=== PATIENT | female | born 1950 | race African-American/Black ===

== ENCOUNTER 2018-06-14 05:34 | Observation (INO) | payer OTHER ==
[2018-06-13 14:35] LABS: BASOPHILS # (AUTO) 0.1 (0.0-0.1); BASOPHILS % 0.8 % (0.0-1.0); EOSINOPHILS # (AUTO) 0.2 (0.0-0.4); EOSINOPHILS % 2.9 % (0.0-6.0); HEMATOCRIT 36.4 % (34.2-44.1); HEMOGLOBIN 11.4 g/dL (12.0-16.0); LYMPHOCYTES # (AUTO) 2.8 (1.0-3.2); LYMPHOCYTES % 42.8 % (18.0-39.1); MEAN CORPUSCULAR HGB CONC 31.3 g/dL (31-35); MEAN CORPUSCULAR VOLUME 86.1 fL (81-99); MONOCYTES # (AUTO) 0.5 (0.2-0.8); NEUTROPHILS # (AUTO) 3.1 (2.1-6.9); NEUTROPHILS % 46.2 % (38.7-80.0); PLATELET COUNT 307 x10e3/uL (140-360); RED BLOOD COUNT 4.23 x10e6/uL (3.6-5.1); RED CELL DISTRIBUTION WIDTH 15.3 % (11.7-14.4)
[2018-06-13 14:53] LABS: ANION GAP 15.2 mmol/L (8-16); BLOOD UREA NITROGEN 9 mg/dL (7-26); BUN/CREATININE RATIO 12 (6-25); CALCIUM 9.9 mg/dL (8.4-10.2); CARBON DIOXIDE 24 mmol/L (22-29); CHLORIDE 107 mmol/L (98-107); CREATININE, SERUM 0.74 mg/dL (0.57-1.11); EST GLOMERULAR FILTRATION RATE > 60 ML/MIN (60-); GLUCOSE 94 mg/dL (74-118); POTASSIUM 4.2 mmol/L (3.5-5.1); SODIUM 142 mmol/L (136-145)
--- NOTE | 2018-06-13 15:13 | Diagnostic Imaging Report ---
EXAMINATION: PA and lateral views of the chest. COMPARISON: None CLINICAL HISTORY: Pre-admission, knee surgery DISCUSSION: Lines/tubes: None. Lungs: The lungs are well inflated and clear. No pneumonia or pulmonary edema. Pleura: No pleural effusion or pneumothorax. Heart and mediastinum: The cardiomediastinal silhouette is normal. Bones and soft tissues: No acute bony abnormalities. IMPRESSION: No acute cardiopulmonary abnormalities. Signed by: Dr. Miles Aldridge M.D. on 06/13/2018 3:09 PM
[~2018-06-14] VITALS: Ht 154.9 cm; Wt 100.7 kg
[~2018-06-14 05:34] MED LIST: DICLOFENAC TOP; HYDROCHLOROTHIA25 MG PO; NORCO 5-325 TA1 EACH PO; ULTRAM 50MG50 MG PO
--- OUTSIDE RECORDS SUMMARY | 2018-06-14 05:37 | XMS REPORT | Clinical Summary ---
Author Author [facility] Address Unknown Phone Unavailable Care Team Providers Care Tire Inspector Name Role Phone Asked, No Pcp PCP Unavailable Allergies No Known Allergies Medications No known medications Active Problems No known active problems Social History Date Tobacco Use Types Packs/Day Years Used Never Smoker Sex Assigned at Date Recorded Not on file Industry Job Start Date Occupation Not on file Not on file Not on file Travel End Travel History Travel Start No recent travel history available. Last Filed Vital Signs Not on file Plan of Treatment Health Maintenance Due Date Last Done Comments BREAST CANCER SCREENING 1998 COLON CANCER SCREENING 1998 SHINGRIX VACCINE (1 of 2) 1998 ZOSTER VACCINE 2008 PNEUMOCOCCAL 2013 POLYSACCHARIDE VACCINE AGE 65 AND OVER PNEUMOCOCCAL-13 2013 INFLUENZA VACCINE 02/02/2018 Results Not on fileafter 06/13/2017 Insurance Payer Benefit Subscriber ID Type Phone Address Plan / Group [employer] TEX[employer] xxxxxxxxx [facility] Advance Directives Patient has advance care planning documents on file. For more information, ji ríos contact: Nikko Mancuso [address] [place] [address]
--- OUTSIDE RECORDS SUMMARY | 2018-06-14 05:37 | XMS REPORT ---
[facility] Address Unknown Phone Unavailable Care Team Providers Care Leasing Associate Name Role Phone AGUSTIN CHARLES Unavailable Unavailable Problems This patient has no known problems. Allergies, Adverse Reactions, Alerts This patient has no known allergies or adverse reactions. Medications This patient has no known medications. Results Test Description Test Time Test Comments Text Results Atomic Results Result Comments CHEST 2 VIEWS 2018-06-13 15:09:00 [place] [address] Patient Name: BEN EDMOND MR #: [id number] : 1950 Age/Sex: 68/F Req #: [id number] Adm Physician: Ordered by: AGUSTIN CHARLES MD Report #: [id number] Location: OR Room/Bed: Procedure: [id number] DX/CHEST 2 VIEWS Exam Date: 06/13/18 Exam Time: 1434 REPORT STATUS: Signed EXAMINATION: PA and lateral views of the chest. KARINA RISON: None CLINICAL HISTORY: Pre-admission, knee surgery DISCUSSION: Lines/tubes: None. Lungs: The lungs are well inflated and clear. No pneumonia or pulmonary edema. Pleura: No pleural effusion or pneumothorax. Heart and mediastinum: The cardiomediastinal silhouette is normal. Bones and soft tissues: No acute bony abnormalities. IMPRESSION: No acute cardiopulmonary abnormalities. Signed by: Dr. José Cheng M.D. on 06/13/2018 3:09 PM Dictated By: JOSÉ CHENG MD 08 Transcribed By: ELENA on 06/13/181508 COPY TO: AGUSTIN CHARLES MD
[2018-06-14] MEDS ORDERED: BACITRACIN 50,000 UNIT VIAL ONE (06:15)
[2018-06-14] MEDS ORDERED: CELECOXIB 200 MG CAP ONE (06:30)
[2018-06-14] MEDS ORDERED: DEXAMETHASONE SOD PHOS 10 MG/1 ML VIAL ONE (06:30)
[2018-06-14] MEDS ORDERED: GABAPENTIN 300 MG CAP ONE (06:31)
[2018-06-14] MEDS ORDERED: CEFAZOLIN SOD 2 GM/D5W 50ML 50 ML IV ONE (06:31)
[2018-06-14] MEDS ORDERED: ROPIVACAINE 246.25 MG, EPINEPHRINE HCL 1:1000 0.5 MG, CLONIDINE HCL 0.08 MG, KETOROLAC ... INJ ONE ×5 (07:30)
[2018-06-14] MEDS ORDERED: KETOROLAC TROMETHAMINE 30 MG/ML VIAL IV PRN (09:30)
[2018-06-14] MEDS ORDERED: ZOLPIDEM TARTRATE 5 MG TAB PO PRN (09:30)
[2018-06-14] MEDS ORDERED: HYDROCODONE/APAP 7.5MG-325MG 1 EA TAB PO PRN (09:30)
[2018-06-14] MEDS ORDERED: PROMETHAZINE HCL (IM) 25 MG/ML VIAL INJ PRN (09:30)
[2018-06-14] MEDS ORDERED: DOCUSATE SODIUM 100 MG CAP PO PRN (09:30)
[2018-06-14] MEDS ORDERED: ONDANSETRON HCL INJ 2 MG/ML VIAL IV PRN (09:30)
[2018-06-14] MEDS ORDERED: HYDROCODONE/APAP 5MG-325MG TAB PO PRN (09:30)
[2018-06-14] MEDS ORDERED: ACETAMINOPHEN 650 MG SUPP PR PRN (09:30)
[2018-06-14] MEDS ORDERED: DIPHENHYDRAMINE HCL INJ 50 MG/ML VIAL IM/IV PRN (09:30)
--- NOTE | 2018-06-14 10:05 | Operative Report ---
DATE OF PROCEDURE: June 14, 2018 ASSOCIATE PROFESSOR OF PATHOLOGY: Ciro Brown PA-C The patient was brought to the operating room for induction of anesthesia. Throughout this case, my PA's assistance was necessary for retraction of soft tissue and positioning of the extremity. This allows for efficient and technically successful execution of the operation and is considered medically necessary. PREOPERATIVE DIAGNOSES 1. Osteoarthritis, left knee. 2. Morbid obesity. POSTOPERATIVE DIAGNOSES 1. Osteoarthritis, left knee. 2. Morbid obesity. PROCEDURE: Complex left total knee replacement with subtotal synovectomy. INDICATIONS: The patient is a 68-year-old lady who has clinic signs and symptoms consistent with advanced osteoarthritis of her left knee. She has failed conservative management and would like to proceed with a left total knee replacement. The risks and benefits of the procedure have been discussed. The added potential for risk due to her body mass index of 43 has been explained. She states she understands and wishes to proceed. DESCRIPTION OF PROCEDURE: The patient was brought to the operating room and placed under general anesthetic. She received prophylactic antibiotics, a regional block, and tranexamic acid in the holding area. Her left lower extremity was prepped and draped in a sterile manner. Added time and personnel was necessary due to the patient's body mass index of 43. A preoperative time out was performed. The extremity was exsanguinated and a proximal tourniquet was inflated to 350 mmHg. A more extensile incision than usual was necessary. A medial parapatellar arthrotomy was performed. Blood-tinged synovial fluid was encountered. Massive amounts of synovitis were encountered. I initially started by performing a subtotal synovectomy. This allowed better exposure of the altered surgical field. Soft tissue releases were performed to bring the knee up into flexion with the patella everted. Again, added challenges were encountered to manipulate the knee. The cruciate ligaments were sacrificed. A Eng and Nephew posterior stabilized Legion knee system was used throughout the case. The proximal tibia was carefully exposed. Marginal osteophytes were removed. A tibial cutting guide was used to resect the proximal tibia. The tibial baseplate was a size #4. The central fin punch was impacted and attention was directed towards the distal femur. An intramedullary cutting guide was used to resect the distal femur in 6 degrees of valgus and 30 degrees of external rotation. Rotation was also referenced off of the posterior condyle, the epicondylar axis and [place] line. The femoral component was a size #5. The anterior and posterior cuts were made. The notch cut was made. Trial reductions were performed. A 9 mm posterior stabilized tibial insert provided appropriate soft tissue balancing. The patella was resurfaced with a 29 mm x 7.5 mm patellar button. The thickness was checked before and after and was right around 21 mm. Patellar tracking was noted to be concentric. The trial implants were then removed. A 100 mL premixed pericapsular injection was placed into the surrounding soft tissue. The knee was thoroughly irrigated with a shower-tip pulsatile lavage. A single mix of high-viscosity Simplex cement was used to cement the components into place. Care was taken to remove extravasated cement. The wound was further irrigated while the cement cured. The arthrotomy was then closed with interrupted #1 Ethibond stitches. The knee was put through flexion and extension to ensure a secure closure. The skin was carefully closed with subcuticular Vicryl and christiano. A Prevena wound VAC was applied due to the abundant subcutaneous adipose tissue. The patient was extubated and transported to the recovery room in stable condition. Blood loss was minimal. All needle and sponge counts were correct. Job#: [id number] MANUEL
--- NOTE | 2018-06-14 10:20 | Diagnostic Imaging Report ---
PROCEDURE: X-RAY LEFT KNEE, ONE OR TWO VIEWS COMPARISON: None. INDICATIONS:POST RIGHT KNEE SURGERY FINDINGS: See conclusion. CONCLUSION: Status post total right knee replacement with surrounding soft tissue swelling, air and christiano consistent with recent surgery. No acute fractures. Lucio Aguayo M.D. Dictated by: Lucio Aguayo M.D. on 06/14/2018 at 10:30 Electronically approved by: Lucio Aguayo M.D. on 06/14/2018 at 10:30
--- OUTSIDE RECORDS SUMMARY | 2018-06-14 10:51 | XMS REPORT | Clinical Summary ---
Author Author [facility] Address Unknown Phone Unavailable Care Team Providers Care Development Disability Specialist Name Role Phone Asked, No Pcp PCP [...] Plan / Group [employer] TEX[employer] xxxxxxxxx [facility] Advance Directives Patient has advance care planning documents on file. For more information, ji ríos contact: Nikko Mancuso [address] [place] [address]
[2018-06-14 12:25] VITALS: BP 144/85
[2018-06-14 12:47] VITALS: BP 144/85
[2018-06-14] MEDS: ACETAMINOPHEN 1000 MG/100 ML IV SCH ×2 (13:00→17:31)
[2018-06-14 13:49] VITALS: BP 144/85
[2018-06-14] MEDS: CEFAZOLIN SOD 1 GM/D5W 50ML 50 ML IV SCH ×2 (14:07→21:33)
[2018-06-14] MEDS ORDERED: DEXAMETHASONE SOD PHOS INJ 4 MG/ML VIAL ONE (14:59)
[2018-06-14] MEDS ORDERED: KETOROLAC TROMETHAMINE 30 MG/ML VIAL ONE (14:59)
[2018-06-14] MEDS ORDERED: ACETAMINOPHEN 1000 MG/100 ML IV ONE (14:59)
[2018-06-14] MEDS ORDERED: LABETALOL HCL 5 MG/ML 20ML VIAL ONE (14:59)
[2018-06-14] MEDS ORDERED: ONDANSETRON HCL INJ 2 MG/ML VIAL ONE (14:59)
[2018-06-14] MEDS ORDERED: PROPOFOL IV EMULSION 10 MG/ML 20 ML VIAL ONE (14:59)
[2018-06-14] MEDS ORDERED: DESFLURANE 240 ML BTL INH ONE (14:59)
[2018-06-14] MEDS ORDERED: ROPIVACAINE 0.5% 5 MG/ML 30 ML SDV ONE (15:06)
[2018-06-14] MEDS ORDERED: LIDOCAINE HCL 2% LOCAL 20 ML VIAL ONE (15:06)
[2018-06-14] MEDS ORDERED: FENTANYL CITRATE/PF 100MCG/2 ML INJ ONE (15:29)
[2018-06-14] MEDS ORDERED: MIDAZOLAM HCL 2 MG/2 ML VIAL ONE (15:29)
[2018-06-14 16:26] VITALS: BP 134/63
[2018-06-14] MEDS ORDERED: ASPIRIN 325 MG TAB PO SCH (17:00)
[2018-06-14] MEDS: CELECOXIB 100 MG CAP PO SCH (17:31)
[2018-06-14 19:00] VITALS: BP 134/63
[2018-06-14] MEDS: SODIUM CHLORIDE 0.9% 1000ML 1,000 ML IV SCH ×2 (19:16→21:33)
[2018-06-14 20:00] VITALS: BP_SYST 124; BP_SYST 126; BP_DIAS 60; BP_DIAS 70
[2018-06-15] VITALS: BP 126/60
[2018-06-15] MEDS: ACETAMINOPHEN 1000 MG/100 ML IV SCH ×2 (00:39→06:00)
[2018-06-15 04:00] VITALS: BP 139/63
[2018-06-15] MEDS: SODIUM CHLORIDE 0.9% 1000ML 1,000 ML IV SCH (05:16)
[2018-06-15] MEDS: CEFAZOLIN SOD 1 GM/D5W 50ML 50 ML IV SCH (06:19)
[2018-06-15 07:54] LABS: HEMATOCRIT 26.8 % (34.2-44.1); HEMOGLOBIN 8.6 g/dL (12.0-16.0)
[2018-06-15] MEDS ORDERED: ASPIRIN325 MG PO (08:42)
[2018-06-15] MEDS ORDERED: HYDROCHLOROTHIAZIDE 25 MG TAB PO SCH (09:00)
[2018-06-15] MEDS ORDERED: TRAMADOL HCL 50 MG TAB PO SCH (09:00)
[2018-06-15] MEDS ORDERED: ASPIRIN 325 MG TAB PO SCH (09:00)
[2018-06-15 09:04] VITALS: BP 114/57
[2018-06-15] MEDS ORDERED: TRAMADOL HCL 50 MG TAB PO PRN (09:15)
[2018-06-15] MEDS ORDERED: ACETAMINOPHEN 1000 MG/100 ML IV PRN (09:30)
[2018-06-15 11:00] VITALS: BP 114/57
[2018-06-15] MEDS: CELECOXIB 100 MG CAP PO SCH (11:00)
[2018-06-15] MEDS ORDERED: COLACE100 MG PO (11:33)
[2018-06-15] MEDS ORDERED: HEMOCYTE PLUS1 EACH PO (11:33)
[2018-06-15] MEDS ORDERED: ROPIVACAINE 0.5% 5 MG/ML 30 ML SDV INJ ONE (13:17)
[2018-06-15] MEDS ORDERED: LIDOCAINE 2%/ EPINEPHRINE 20ML MDV IV ONE (13:17)
== END 2018-06-15 13:18 | disposition home health service (06) ==
LOC: OR 05:34 → PACU V 09:18 → MED/SURG 12:13
PROVIDERS: ADMIT Specialist; ATTEND Specialist
DX: M17.12 Unilateral primary osteoarthritis, left knee (principal); E66.01 Morbid (severe) obesity due to excess calories; Z68.41 Body mass index [BMI] 40.0-44.9, adult; I10 Essential (primary) hypertension; D64.9 Anemia, unspecified
CPT/HCPCS: 27447; 36415 ×2; 71046; 73560; 80048; 85014; 85018; 85025; 86850; 86900; 86920; 97116 ×2; 97139; 97162; 97530; C1713; G0378 ×2; G8978; G8979; J0131 ×2; J0171; J0690 ×2; J1100 ×2; J1885 ×2; J2001 ×2; J2250; J2405; J2704; J2795 ×2; J3490; J7030

== ENCOUNTER 2020-01-29 05:10 | Observation (INO) | payer MEDICARE, OTHER ==
[2020-01-24 15:06] LABS: BASOPHILS % 0.7 % (0.0-1.0); EOSINOPHILS # (AUTO) 0.1 (0.0-0.4); EOSINOPHILS % 1.8 % (0.0-6.0); HEMATOCRIT 40.7 % (34.2-44.1); HEMOGLOBIN 12.4 g/dL (12.0-16.0); LYMPHOCYTES # (AUTO) 2.3 (1.0-3.2); MEAN CORPUSCULAR HEMOGLOBIN 26.5 pg (28-32); MEAN CORPUSCULAR HGB CONC 30.5 g/dL (31-35); MONOCYTES # (AUTO) 0.4 (0.2-0.8); MONOCYTES % 7.4 % (4.4-11.3); NEUTROPHILS # (AUTO) 2.8 (2.1-6.9); NEUTROPHILS % 49.7 % (38.7-80.0); PLATELET COUNT 299 x10e3/uL (140-360); RED BLOOD COUNT 4.68 x10e6/uL (3.6-5.1); RED CELL DISTRIBUTION WIDTH 15.2 % (11.7-14.4)
--- NOTE | 2020-01-24 15:07 | Diagnostic Imaging Report ---
EXAMINATION: CHEST 2 VIEWS INDICATION: Pre-operative COMPARISON: Chest radiograph of 04/23/2018 FINDINGS: LINES/TUBES:None LUNGS:The lungs are well-inflated. No focal consolidation or pulmonary edema. PLEURA:No pleural effusion or pneumothorax. MEDIASTINUM:The cardiomediastinal silhouette appears normal in size and shape. Atherosclerotic calcifications of the thoracic aorta. BONES/SOFT TISSUES:No acute osseous injury. ABDOMEN:No free air under the diaphragm. IMPRESSION: No focal pneumonia or pulmonary edema. Signed by: Roby Kelley MD on 01/24/2020 3:04 PM
[2020-01-24 15:20] LABS: ANION GAP 14.5 mmol/L (8-16); BLOOD UREA NITROGEN 9 mg/dL (7-26); BUN/CREATININE RATIO 11 (6-25); CALCIUM 9.7 mg/dL (8.4-10.2); CARBON DIOXIDE 26 mmol/L (22-29); CHLORIDE 110 mmol/L (98-107); EST GLOMERULAR FILTRATION RATE > 60 ML/MIN (60-); GLUCOSE 102 mg/dL (74-118); POTASSIUM 4.5 mmol/L (3.5-5.1); SODIUM 146 mmol/L (136-145)
[~2020-01-29] VITALS: Ht 154.9 cm; Wt 113.4 kg
[~2020-01-29 05:10] MED LIST changes: +ASPIRIN325 MG PO; +ATORVASTATIN CA10 MG PO; +COLACE100 MG PO; +HEMOCYTE PLUS1 EACH PO; +VITAMIN D250 MCG PO
[2020-01-29] MEDS ORDERED: GABAPENTIN 300 MG CAP ONE (05:34)
[2020-01-29] MEDS ORDERED: CEFAZOLIN SOD 1 GM/NS 50ML 100 ML IV ONE (05:34)
[2020-01-29] MEDS ORDERED: DEXAMETHASONE SOD PHOS 10 MG/1 ML VIAL ONE (05:34)
[2020-01-29] MEDS ORDERED: CELECOXIB 200 MG CAP ONE (05:34)
[2020-01-29] MEDS ORDERED: VANCOMYCIN HCL 1,000 MG ONE (06:17)
[2020-01-29] MEDS ORDERED: SODIUM CHLORIDE 0.9% 500ML 500 ML ONE (06:17)
[2020-01-29] MEDS ORDERED: TRANEXAMIC ACID 1,000 MG/10 ML ML ONE (06:18)
[2020-01-29] MEDS ORDERED: BACITRACIN 50,000 UNIT VIAL ONE (06:18)
[2020-01-29] MEDS ORDERED: ROPIVACAINE 246.25 MG, EPINEPHRINE HCL 1:1000 1ML 0.5 MG, CLONIDINE HCL 0.08 MG, KETORO... INJ ONE ×5 (08:00)
[2020-01-29] MEDS ORDERED: DOCUSATE SODIUM 100 MG CAP PO PRN (08:45)
[2020-01-29] MEDS ORDERED: HYDROCODONE/APAP 5MG-325MG TAB PO PRN (08:45)
[2020-01-29] MEDS ORDERED: DIPHENHYDRAMINE HCL INJ 50 MG/ML VIAL IV PRN (08:45)
[2020-01-29] MEDS ORDERED: ACETAMINOPHEN 650 MG SUPP PR PRN (08:45)
[2020-01-29] MEDS ORDERED: ONDANSETRON HCL INJ 2MG/ML 2ML 2 MG/ML VIAL IV PRN (08:45)
[2020-01-29] MEDS ORDERED: FENTANYL CITRATE/PF 100MCG/2 ML INJ ONE (08:59)
[2020-01-29] MEDS ORDERED: CELECOXIB 100 MG CAP PO SCH (09:00)
[2020-01-29] MEDS ORDERED: METOCLOPRAMIDE HCL 10 MG/2ML VIAL ONE (09:56)
[2020-01-29] MEDS ORDERED: PROMETHAZINE HCL (IM) 25 MG/ML VIAL ONE (10:04)
[2020-01-29] MEDS: KETOROLAC TROMETHAMINE 30 MG/ML VIAL IV PRN ×3 (10:10→16:32)
[2020-01-29] MEDS ORDERED: NALOXONE HCL INJ 0.4 MG/ML AMP ONE (10:14)
--- NOTE | 2020-01-29 10:18 | Diagnostic Imaging Report ---
EXAMINATION: KNEE RIGHT 1-2 VIEWS INDICATION: Postoperative COMPARISON: None FINDINGS: AP and lateral images of the right knee demonstrate immediate postoperative findings of right total knee replacement. Alignment is anatomic. No unexpected fracture. Postoperative soft tissue emphysema and small joint effusion. Surgical skin christiano in place. IMPRESSION: Anatomic alignment status post right total knee replacement. Signed by: Roby Kelley MD on 01/29/2020 10:15 AM
[2020-01-29 10:30] VITALS: BP_SYST 122; BP_SYST 127; BP_DIAS 60; BP_DIAS 63
--- NOTE | 2020-01-29 10:30 | NUR ---
Pt received at this time from PACU. Pt is aox4 and able to verbalize needs. Pt had right total knee with Dr. Martin. dressing to right knee is dry and intact. Breaths are even and unlabored on room air.
[2020-01-29 10:55] LABS: BASOPHILS % 0.1 % (0.0-1.0); EOSINOPHILS % 0.1 % (0.0-6.0); HEMATOCRIT 36.4 % (34.2-44.1); HEMOGLOBIN 11.4 g/dL (12.0-16.0); LYMPHOCYTES # (AUTO) 1.1 (1.0-3.2); LYMPHOCYTES % 14.3 % (18.0-39.1); MEAN CORPUSCULAR HEMOGLOBIN 26.9 pg (28-32); MEAN CORPUSCULAR HGB CONC 31.3 g/dL (31-35); MEAN CORPUSCULAR VOLUME 85.8 fL (81-99); MONOCYTES # (AUTO) 0.1 (0.2-0.8); MONOCYTES % 0.8 % (4.4-11.3); NEUTROPHILS # (AUTO) 6.7 (2.1-6.9); NEUTROPHILS % 83.9 % (38.7-80.0); PLATELET COUNT 242 x10e3/uL (140-360); RED BLOOD COUNT 4.24 x10e6/uL (3.6-5.1); RED CELL DISTRIBUTION WIDTH 15.1 % (11.7-14.4)
--- NOTE | 2020-01-29 10:57 | Operative Report ---
DATE OF PROCEDURE: 01/29/2020 SURGEON: Kiran Martin MD LEGAL BILLING SPECIALIST: Ciro Brown, certified PA. PREOPERATIVE DIAGNOSIS: Osteoarthritis, right knee. POSTOPERATIVE DIAGNOSIS: Osteoarthritis, right knee. PROCEDURE: Right total knee arthroplasty, * added complexity secondary to BMI of 42. INDICATIONS: The patient is a 69-year-old lady, who has end-stage arthritis of her right knee. She has failed conservative management and would like to proceed with a right total knee replacement. The risks and benefits of the procedure have been discussed. The added challenges and risks for perioperative complications due to her body mass index have been discussed. She accepts this. She is status post a left total knee replacement and is happy with the outcome. PROCEDURE IN DETAIL: The patient was brought to the operating room and placed under general anesthetic. She received prophylactic antibiotics, a regional block and tranexamic acid in the holding area. Her right lower extremity was prepped and draped in a sterile manner. Added time and attention to detail was used due to her body mass index. Not only does she have a body mass index of 42, the majority of her weight is distributed to her lower extremities. A preoperative time-out was performed. The extremity was exsanguinated and a proximal tourniquet was inflated to 400 mmHg. We did this because of the amount of adipose tissue in her right lower extremity and because of the challenges we encountered we did her left knee with breakthrough bleeding. An anterior incision with a medial parapatellar arthrotomy was performed. I made specific efforts to limit soft tissue dissection and diminish the potential for creating space. Soft tissue releases were performed to bring the knee up into flexion with the patella everted. A large amount of inflammatory synovium was encountered. Throughout the case, a subtotal synovectomy would be performed. Meniscal remnants and the cruciate ligaments were excised. Marginal osteophytes were removed. The proximal tibia was carefully exposed. Some challenges were encountered due to the abundant adipose tissue and altered surgical field. An extramedullary cutting guide was used to resect the proximal tibia. The tibial base plate was a size 4. The central fin punch was carefully impacted and attention was directed towards the distal femur. An intramedullary cutting guide was used to resect the distal femur in 6 degrees of valgus and rotation referencing off a combination of landmarks including [place] line, the epicondylar axis, and the posterior condyles. The femoral component was a size 5. The anterior, posterior, and notch cuts were made. A trial reduction was then performed. A 9 mm posterior stabilized tibial insert provided appropriate soft tissue balancing in flexion and extension. The patella was then resurfaced with a 29 mm x 7.5 mm patellar button. The thickness was checked before and after resurfacing, and was right around 21 mm. Patellar tracking was noted to be concentric. The trial implants were removed. The knee was thoroughly irrigated with a shower tip pulsatile lavage. Bone cuts had been irrigated with a diluted mixture of polymyxin and vancomycin spray. Her bone was soft and there did not appear to be any thermal necrosis. A 100 mL premixed pericapsular KOBE injection was placed into the surrounding soft tissue. The knee was further irrigated. The components were cemented into place using a single mix of high viscosity Biomet cement preloaded with gentamicin. Care was taken to remove all extravasated cement. The wound was further irrigated while the cement cured. A 500 mg of vancomycin powder was then sprinkled into the wound. The arthrotomy was then closed with interrupted #1 Ethibond. The knee was put through flexion and extension to ensure a secure closure. The skin was closed with subcuticular Vicryl and christiano. A sterile Aquacel bandage was applied. The patient was extubated and transported to the recovery room in stable condition. Blood loss was minimal. Needle and sponge counts were correct. Kiran Martin MD DR/EMANUEL /[id number]
[2020-01-29 11:11] LABS: ANION GAP 11.8 mmol/L (8-16); BLOOD UREA NITROGEN 11 mg/dL (7-26); BUN/CREATININE RATIO 14 (6-25); CALCIUM 8.8 mg/dL (8.4-10.2); CARBON DIOXIDE 24 mmol/L (22-29); CHLORIDE 108 mmol/L (98-107); CREATININE, SERUM 0.79 mg/dL (0.57-1.11); EST GLOMERULAR FILTRATION RATE > 60 ML/MIN (60-); GLUCOSE 158 mg/dL (74-118); POTASSIUM 3.8 mmol/L (3.5-5.1); SODIUM 140 mmol/L (136-145)
[2020-01-29] MEDS: ASPIRIN 325 MG TAB PO SCH ×2 (11:22→16:32)
[2020-01-29] MEDS: SODIUM CHLORIDE 0.9% 1000ML 1,000 ML IV SCH ×2 (11:22→18:45)
[2020-01-29] MEDS: HYDROCODONE/APAP 7.5MG-325MG 1 EA TAB PO PRN ×2 (11:23→21:50)
[2020-01-29 11:45] VITALS: BP 100/58
[2020-01-29] MEDS ORDERED: ACETAMINOPHEN 1000 MG/100 ML IV PRN (12:00)
[2020-01-29] MEDS: CEFAZOLIN SOD 1 GM/NS 50ML 50 ML IV SCH ×2 (16:32→22:00)
[2020-01-29] MEDS: CELECOXIB 200 MG CAP PO SCH (16:32)
[2020-01-29 16:55] VITALS: BP 126/66
[2020-01-29 20:00] VITALS: BP 138/65
[2020-01-29] MEDS ORDERED: ZOLPIDEM TARTRATE 5 MG TAB PO PRN (21:00)
[2020-01-30] VITALS: BP 129/56
[2020-01-30 04:00] VITALS: BP 142/68
[2020-01-30 05:08] LABS: HEMATOCRIT 35.9 % (34.2-44.1); HEMOGLOBIN 10.9 g/dL (12.0-16.0)
[2020-01-30] MEDS: SODIUM CHLORIDE 0.9% 1000ML 1,000 ML IV SCH (05:40)
[2020-01-30] MEDS: CEFAZOLIN SOD 1 GM/NS 50ML 50 ML IV SCH (05:45)
[2020-01-30] MEDS: HYDROCODONE/APAP 7.5MG-325MG 1 EA TAB PO PRN (06:00)
--- NOTE | 2020-01-30 07:00 | NUR ---
RECEIVED PT ON BEDSIDE ROUNDS. CMP IN PLACE; PT TOLERATING WELL.
--- NOTE | 2020-01-30 08:14 | NUR ---
DR DIAZ OFFICE PREARRANGED FOLLOWING DISCHARGE PLAN OF:HOME [address] [place], [address] [facility] CONFIRMED WITH LUCIANA [phone] DME 3 IN ONE COMMODE, CPM AND ROLLING WALKER WITH WHEELS. PROVIDED BY [employer] [phone] DEVAUGHN TRIMBLE SIGNED AND ON CHART COPY LEFT WITH PATIENT GAVE CARD FOR QUESTIONS AND OR CONCERNS.
[2020-01-30 08:29] VITALS: BP 149/65
[2020-01-30] MEDS: CELECOXIB 200 MG CAP PO SCH (09:00)
[2020-01-30] MEDS ORDERED: ERGOCALCIFEROL 50000 UNIT PO SCH (09:00)
[2020-01-30] MEDS ORDERED: ATORVASTATIN 10 MG TAB PO SCH (09:00)
[2020-01-30] MEDS: ASPIRIN 325 MG TAB PO SCH (09:00)
[2020-01-30 10:45] VITALS: BP 149/65
--- NOTE | 2020-01-30 11:58 | Consultation ---
DATE OF CONSULTATION: PRIMARY CARE PHYSICIAN: Dr. Dirk Waldrop. REASON FOR CONSULTATION: Medical consultation for hypertension and medical management. HISTORY OF PRESENT ILLNESS: The patient is a pleasant 69 years female, status post right knee total replacement. The patient is otherwise stable. Tolerates physical therapy. The patient had no complication. PAST MEDICAL HISTORY: Complex left total knee arthroplasty with subtotal synovectomy back in 2018, hypertension, osteoarthritis, and dyslipidemia. PAST SURGICAL HISTORY: Total left knee arthroplasty and subtotal synovectomy. The patient is status post now total right knee replacement. SOCIAL HISTORY: The patient does not smoke or use alcohol. No regular drugs. ALLERGIES: NO KNOWN ALLERGIES. HOME MEDICATIONS: Lipitor, vitamin D3, and HCTZ. PHYSICAL EXAMINATION: VITAL SIGNS: Temperature is 98, blood pressure 140/60, pulse rate 75, and respirations 18. GENERAL: The patient is not in acute distress. She is awake. HEENT: Normocephalic and atraumatic. She is anicteric. NECK: Supple grossly. PULMONARY: Clear. CARDIOVASCULAR: Regular rhythm. ABDOMEN: Obese, otherwise unremarkable. EXTREMITIES: Status post right knee replacement. Old left knee scar. No edema. No cyanosis. NEUROLOGIC: No focal deficit. Moving all extremities. LABORATORY DATA: Sodium is 140, potassium 3.8, chloride 108, bicarb 24, BUN 11, creatinine 0.8, and glucose 158. WBC is 8, hemoglobin 11, hematocrit 36, and platelets 242. IMPRESSION: 1. Stable with status post right total knee replacement. 2. Hypertension, stable. 3. History of osteoarthritis. PLAN: Continue with home medication except for HCTZ for now. Discontinue IV fluids. Continue with pain control. Aspirin for DVT prophylaxis. The patient is otherwise stable. The patient should be able to go home soon with physical therapy and follow up with Dr. Kiran crockett. MD DARIAN Serrato/EMANUEL /[id number]
[2020-01-30 12:24] VITALS: BP 151/62
[2020-01-30] MEDS ORDERED: K DUR10 MEQ PO (12:24)
[2020-01-30] MEDS ORDERED: ONDANSETRON HCL 4 MG ORAL DISINTEGRATING TAB PO PRN (13:15)
--- NOTE | 2020-01-30 14:12 | NUR ---
PT DISCHARGED AT THIS TIME. INSTRUCTIONS ALONG WITH PRESCRIPTION GIVE. PT OUT VIA WC BY STAFF
== END 2020-01-30 14:12 | disposition home health service (06) ==
LOC: OR 05:10 → PACU V 08:39 → MED/SURG 10:26
PROVIDERS: ADMIT Specialist; ATTEND Specialist
DX: M13.861 Other specified arthritis, right knee (principal); E78.00 Pure hypercholesterolemia, unspecified; I10 Essential (primary) hypertension; Z96.652 Presence of left artificial knee joint; Z87.891 Personal history of nicotine dependence; E66.01 Morbid (severe) obesity due to excess calories; Z68.42 Body mass index [BMI] 45.0-49.9, adult; Z11.59 Encounter for screening for other viral diseases
CPT/HCPCS: 27447; 36415 ×3; 71046; 73560; 80048 ×2; 85014; 85018; 85025 ×2; 86850; 86900; 86920; 93005; 97110; 97116 ×2; 97139; 97161; 97530; C1713; G0378 ×2; J0171; J0690 ×2; J1100; J1885; J2405; J2550; J2765; J2795; J3010; J3370; J7030 ×2; J7040; U0002; J2310